=== PATIENT | female | born 1980 | race Caucasian/White ===

== ENCOUNTER 2021-04-24 09:48 | Emergency (ER) | payer BC ==
[~2021-04-24] VITALS: Ht 167.6 cm; Wt 79.4 kg
== END 2021-04-24 15:45 | disposition home or self-care (01) ==
LOC: ER1 09:48
DX: Z23 Encounter for immunization (principal); U07.1 COVID-19; Z88.8 Allergy status to other drugs, medicaments and biological substances
CPT/HCPCS: 99283; M0243; U0002

== ENCOUNTER → 2021-05-14 | Outpatient (CLI) | payer BC ==
[2021-05-14 11:51] LABS: RED BLOOD COUNT 4.69 M/UL (4.00-5.10)
[2021-05-14 12:17] LABS: BUN/CREATININE RATIO 13 (0-10)
== END ==
LOC: LAB 10:45
PROVIDERS: Nurse Practitioner Family
DX: Z00.00 Encounter for general adult medical examination without abnormal findings (principal); E78.5 Hyperlipidemia, unspecified; M25.50 Pain in unspecified joint; K63.89 Other specified diseases of intestine; K31.84 Gastroparesis; K21.9 Gastro-esophageal reflux disease without esophagitis; R53.83 Other fatigue; E53.8 Deficiency of other specified B group vitamins; E55.9 Vitamin D deficiency, unspecified; G89.29 Other chronic pain
CPT/HCPCS: 36415; 80053; 80061; 82607; 84439; 84443; 85025

== ENCOUNTER → 2021-06-18 | Outpatient (CLI) | payer BC | LOC: MAMO 14:30 | DX: Z12.31 Encounter for screening mammogram for malignant neoplasm of breast (principal) | CPT/HCPCS: 77063; 77067 ==

== ENCOUNTER → 2021-07-12 | Outpatient (CLI) | payer BC ==
[2021-07-12 18:01] LABS: HEMOGLOBIN 14.3 gm/dl (12.3-15.3); RED BLOOD COUNT 4.47 M/UL (4.00-5.10)
[2021-07-12 18:23] LABS: BUN/CREATININE RATIO 13 (0-10)
== END ==
LOC: LAB 16:56
PROVIDERS: Nurse Practitioner Family
DX: R05.9 Cough, unspecified (principal); J02.9 Acute pharyngitis, unspecified; J34.89 Other specified disorders of nose and nasal sinuses; M25.50 Pain in unspecified joint
CPT/HCPCS: 36415; 71046; 80053; 85025; 86060; 86403

== ENCOUNTER 2021-09-14 08:53 | Emergency (ER) | payer BC | END 2021-09-14 11:27 | disposition home or self-care (01) | LOC: ER1 08:53 | DX: S50.01XA Contusion of right elbow, initial encounter (principal); W19.XXXA Unspecified fall, initial encounter | CPT/HCPCS: 73080; 99283 ==

== ENCOUNTER → 2021-09-28 | Outpatient (CLI) | payer BC | LOC: EMI 13:55 | DX: S53.104A Unspecified dislocation of right ulnohumeral joint, initial encounter (principal); M25.521 Pain in right elbow; M25.421 Effusion, right elbow | CPT/HCPCS: 73221 ==

== ENCOUNTER → 2021-12-31 | Outpatient (CLI) | payer BC ==
[2021-12-31 08:34] LABS: HEMOGLOBIN 15.3 gm/dl (12.3-15.3); RED BLOOD COUNT 4.79 M/UL (4.00-5.10); WHITE BLOOD COUNT 8.8 K/UL (4.5-11.0)
[2021-12-31 09:03] LABS: BUN/CREATININE RATIO 21 (0-10)
[2022-01-01 08:18] LABS: VITAMIN D, 25-HYDROXY 38.5 ng/mL (30.0-100.0)
[2022-01-01 22:09] LABS: SARS-COV-2 SEMI-QUANT TOTAL AB See Dilution U/mL (Negative<0.8); SARS-COV-2 SPIKE AB DILUTION 1312 U/mL (Negative<0.8); SARS-COV-2 SPIKE AB INTERP Positive (.)
== END ==
LOC: LAB 07:57
PROVIDERS: Nurse Practitioner Family
DX: Z01.84 Encounter for antibody response examination (principal); R53.83 Other fatigue; M25.50 Pain in unspecified joint; K63.89 Other specified diseases of intestine; R10.9 Unspecified abdominal pain; G89.29 Other chronic pain; K31.84 Gastroparesis; K21.9 Gastro-esophageal reflux disease without esophagitis; E78.5 Hyperlipidemia, unspecified; E53.8 Deficiency of other specified B group vitamins; E11.9 Type 2 diabetes mellitus without complications; Z20.822 Contact with and (suspected) exposure to COVID-19
CPT/HCPCS: 36415; 80053; 80061; 81001; 82607; 84439; 84443; 85025

== ENCOUNTER → 2022-05-09 | Outpatient (CLI) | payer BC ==
[2022-05-09 15:09] LABS: HEMOGLOBIN 14.1 gm/dl (12.3-15.3); RED BLOOD COUNT 4.41 M/UL (4.00-5.10); WHITE BLOOD COUNT 7.5 K/UL (4.5-11.0)
[2022-05-09 15:32] LABS: BUN/CREATININE RATIO 15 (0-10)
== END ==
LOC: LAB 14:04
PROVIDERS: Nurse Practitioner Family
DX: K31.84 Gastroparesis (principal); R10.9 Unspecified abdominal pain; G89.29 Other chronic pain; M25.50 Pain in unspecified joint; K63.89 Other specified diseases of intestine; K21.9 Gastro-esophageal reflux disease without esophagitis; R53.83 Other fatigue; E53.8 Deficiency of other specified B group vitamins; E55.9 Vitamin D deficiency, unspecified
CPT/HCPCS: 36415; 80053; 82607; 84439; 84443; 85025